=== PATIENT | male | born 1985 | race Caucasian/White ===

== ENCOUNTER 2019-11-21 09:25 | Emergency (ER) | payer OTHER ==
[2019-11-21 09:30] VITALS: BP 134/94; PULSE 79; TEMP 98.2; BMI 44.4
[2019-11-21] MEDS ORDERED: valACYclovir HCL 1000 MG TABLET PO ONE (09:54)
[2019-11-21] MEDS ORDERED: valACYclovir HCL 500 MG TABLET (FP) ONE (10:13)
--- NOTE | 2019-11-21 10:31 | PDOC ---
History of Present Illness - General Chief Complaint: Rash Stated Complaint: R/O SHINGLES Time Seen by Provider: 11/21/19 09:46 History Source: Patient Exam Limitations: No Limitations - History of Present Illness Initial Comments: 11/21/19 10:24 Patient is a 34-year-old male who presents to the ED with complaint of a rash on his left anterior chest axilla and left upper back that started on Friday. He states 2 days ago he started having pain to the area and then that evening noticed an eruption of rash. 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 He follows closely with his primary doctor. The patient does admit to having chickenpox as a kid. He believes he has shingles. He denies any fevers or chills. He denies any pus from the rash. He states the rash is very painful. Past History - Past Medical History Allergies/Adverse Reactions: Allergies Allergy/AdvReac Type Severity Reaction Status Date / Time No Known Allergies Allergy Verified 11/21/19 09:29 Home Medications: Ambulatory Orders Ibuprofen [Motrin -] 600 mg PO TID PRN #21 tablet 11/21/19 Oxycodone HCl/Acetaminophen [Percocet 5-325 mg Tablet] 1 tab PO Q6H PRN #12 tablet MDD 4 11/21/19 Valacyclovir HCl [Valtrex -] 1,000 mg PO TID #21 tablet 11/21/19 COPD: No Psychiatric Problems: Yes (anxiety) - Psycho Social/Smoking Cessation Hx Smoking History: Never smoked Review of Systems - Review of Systems Comments:: 11/21/19 10:25 - Review of Systems Able to Perform ROS?: Yes Constitutional: No: Fever, Chills, Loss of Appetite, Night Sweats, Weakness HEENTM: No: Eye Pain, Vision changes, Ear Pain, Throat Pain, Throat Swelling, Mouth Pain, Difficulty Swallowing Respiratory: No: Cough, Shortness of Breath, Wheezing, Sputum Production Cardiac (ROS): No: Chest Pain, Chest Tightness, Palpitations, Irregular Heart Beat, Edema ABD/GI: No: Nausea, Vomiting, Abdominal Pain, Diarrhea : No Dysuria, No Hematuria, No Frequency, No Urgency, No Penile Discharge/ Pain Musculoskeletal: No: Muscle Pain, Back Pain, Joint Pain, Muscle Weakness, Neck Pain Integumentary: No: Lesions; Positive rash to the left anterior chest, left axilla and left upper back Neurological: No: Headache, Numbness, Tingling, Weakness, Speech Difficulties *Physical Exam - Vital Signs Last Vital Signs Temp Pulse Resp BP Pulse Ox 98.2 F 79 18 134/94 99 11/21/19 09:26 11/21/19 09:26 11/21/19 09:26 11/21/19 09:26 11/21/19 09:26 - Physical Exam 11/21/19 10:26 - Physical Exam General Appearance: Nourished, Appropriately Dressed, Moderate distress secondary to pain HEENT: EOMI, Normal Voice, No Pharyngeal Erythema, No Muffled/Hoarse voice, No Tonsillar Exudate, No Tonsillar Erythema, No Nasal Congestion, No Rhinorrhea, Hearing Grossly Normal, TMs Normal, No TM Bulging, No TM Dullness, No TM Erythema; No lesions appreciated on the face Neck: Supple, No Lymphadenopathy (R), No Lymphadenopathy (L), No Rigidity, No Decreased range of motion Respiratory/Chest: Lungs Clear, Normal Breath Sounds. No Respiratory Distress, No Accessory Muscle Use Cardiovascular: Regular Rhythm, Regular Rate, S1, S2 Gastrointestinal/Abdominal: Normal Bowel Sounds, Soft. Non-tender, No Guarding , No Rebound, No Rigidity Musculoskeletal: Normal Inspection. No Decreased Range of Motion Extremity: Normal Capillary Refill, Normal Inspection Integumentary: Normal Color, Dry. Vesicular rash appreciated to the left anterior chest, left axilla and left upper back along the T1 dermatome. No sign of superimposed infection. No drainage. No surrounding cellulitis. Significant tenderness to palpation along the rash and surrounding skin. The rashes consistent with herpes zoster. 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 NML intact, Fully Oriented, Alert, Normal Mood/Affect, Normal Response ED Treatment Course - Medications Given in the ED: ED Medications Discontinued Medications Generic Name Dose Route Start Last Admin Trade Name Freq PRN Reason Stop Dose Admin Oxycodone/Acetaminophen 1 combo 11/21/19 10:01 11/21/19 10:16 Percocet 5/325 - PO 11/21/19 10:02 1 combo ONCE ONE Administration Valacyclovir HCl 1,000 mg 11/21/19 09:54 11/21/19 10:16 Valtrex - PO 11/21/19 09:55 1,000 mg ONCE ONE Administration Medical Decision Making - Medical Decision Making 11/21/19 10:27 Assessment: Patient is a 34-year-old male with herpes zoster to the T1 dermatome. Plan: -First dose of valacyclovir ordered in the ED, will DC with prescription -Percocet x1 given in the ED will DC with prescription -Patient has been advised to follow-up with his primary doctor within the next 1 to 2 days for repeat evaluation. He has been given strict return precautions such as high fevers, profuse vomiting, rash crossing the dermatome, pus from any lesions or any other worsening symptoms. He understands and agrees with this treatment plan and the patient is stable for discharge. Discharge - Discharge Information Problems reviewed: Yes Clinical Impression/Diagnosis: Herpes zoster Qualifiers: Herpes zoster complications: without complications Qualified Code(s): B02.9 - Zoster without complications Condition: Stable Disposition: HOME - Additional Discharge Information Prescriptions: Ibuprofen [Motrin -] 600 mg PO TID PRN #21 tablet PRN Reason: Pain Oxycodone HCl/Acetaminophen [Percocet 5-325 mg Tablet] 1 tab PO Q6H PRN #12 tablet MDD 4 PRN Reason: Severe Pain Valacyclovir HCl [Valtrex -] 1,000 mg PO TID #21 tablet - Follow up/Referral Referrals: Silvana Mcnamara MD [Primary Care Provider] - 24 hours - Patient Discharge Instructions Patient Printed Discharge Instructions: DI for Shingles Additional Instructions: Get plenty of rest and drink plenty of fluids. Be sure to increase fluids secondary to medications that can affect your kidneys. Take ibuprofen (Motrin) for ehok-rp-ameraoch pain, and you can take Percocet for severe pain. Percocet has Tylenol in it so you should not also be taking Tylenol separately. Be sure to follow-up with your primary doctor within 1 to 2 days for repeat evaluation. Take the Valtrex as prescribed and complete the entire course. Return to the emergency department for high fevers, shaking chills, profuse vomiting, rash crossing over the middle of your body, pus from any lesions, worsening pain or any other worsening symptoms. - Post Discharge Activity
== END 2019-11-21 10:46 | disposition home or self-care (01) ==
LOC: JERFT 09:25
DX: B02.9 Zoster without complications (principal); E11.9 Type 2 diabetes mellitus without complications; F41.9 Anxiety disorder, unspecified
CPT/HCPCS: 99283-25